=== PATIENT | female | born 1955 | race Caucasian/White ===

== ENCOUNTER 2017-08-19 12:53 | Outpatient (CLI) | payer BC ==
--- NOTE | 2017-08-19 15:30 | CT ---
ABDOMEN AND PELVIC CT SCAN WITHOUT IV CONTRAST: Date: 08/19/17 HISTORY: 61-year-old female with history of acute pyelonephritis, kidney infection, left flank pain, and micro hematuria. FINDINGS: There are some mostly linear parenchymal changes in the left lower lobe, evidence for subsegmental at electasis and/or chronic change. There is marked hepatomegaly with fatty change, with some fatty spar ing adjacent to the gallbladder, without ductal dilatation. Pancreas, spleen, and adrenal glands are unremarkable. Minimal enlargement of the left kidney with perirenal and periureteral fat stranding, w ith high grade obstruction secondary to a large ureteropelvic junction calculus measuring approximate ly 0.7 x 1.7 cm, as well as several other nonobstructing left renal calculi. No evidence for right re nal or obstruction. Normal appearing appendix. Uterus and adnexal regions are unremarkable. IMPRESSION: 1. Large, irregular left-sided calculus results in severe obstruction at ureteropelvic junction, wit h several smaller, nonobstructing left renal calculi. 2. Marked hepatomegaly with fatty change. 3. Linear stranding in the left lung base, consistent with some subsegmental atelectasis and/or electrician apprentice powerhouse laura change. POS: [facility]
== END 2017-08-19 12:54 | disposition home or self-care (01) ==
LOC: CT 12:53
PROVIDERS: ATTEND Family Medicine
DX: N10 Acute pyelonephritis (principal); N20.2 Calculus of kidney with calculus of ureter; R91.8 Other nonspecific abnormal finding of lung field
CPT/HCPCS: 74176

== ENCOUNTER 2017-08-20 13:58 | Day surgery (SDC) | payer BC ==
[2017-08-20 13:20] LABS: Bilirubin Small (Negative); Blood, Urine Moderate (Negative); Clarity CLOUDY (Clear); Glucose, Urine (Dipstick) Negative (Negative); Leukocyte Large (Negative); Nitrite Negative (Negative); Protein, Urine (Dipstick) 30 mg/dL (Neg-Trace); Specific Gravity, Urine 1.016 (1.002-1.036)
[2017-08-20 13:26] LABS: Bacteria/HPF None Seen HPF (None Seen); Hyaline Casts/LPF 0-3 HYALINE CAST LPF (0-3 Hyaline); Pathc Cast-AUWi Flag 0.14 (0-2.49); RBC/HPF 0-3 HPF (0-3)
[2017-08-20 13:29] LABS: Yeast-AUWi Flag 31.2 (0-25.0)
[~2017-08-20 13:58] MED LIST: Acetaminophen 500 MG TAB PO PRN; Lactated Ringer's 1,000 ML IV SCH; Lactated Ringer's 500 ML IV SCH; Lidocaine 1% PF 5 ML VIAL ONE; Metoclopramide HCl 10 MG/2 ML VIAL IVP PRN; Ondansetron HCl/PF 4 MG/2 ML Vial IVP PRN; PROPOFOL 200 MG/20 ML VIAL ONE; cefTRIAXone\\ROCEPHIN 1 GM in Sodium Chloride 0.9% 100 ML IVPB SCH; diphenhydrAMINE 50 MG in Sodium Chloride 0.9% 50 ML IVPB PRN
[2017-08-20 14:01] LABS: Renal Epithelial 0-3 HPF (0-3); Yeast-All Forms None Seen HPF (None Seen)
[2017-08-20 14:20] VITALS: BMI 25.8
[2017-08-20] MEDS ORDERED: Iothalamate Meglumine 60% 50 ML VIAL FS ONE (14:45)
[2017-08-20] MEDS ORDERED: diphenhydrAMINE 50 MG in Sodium Chloride 0.9% 50 ML IVPB PRN (14:48)
[2017-08-20] MEDS ORDERED: Ondansetron HCl/PF 4 MG/2 ML Vial IVP PRN ×2 (14:50→16:55)
[2017-08-20] MEDS ORDERED: Metoclopramide HCl 10 MG/2 ML VIAL IVP PRN (14:50)
[2017-08-20] MEDS ORDERED: Morphine 4 MG/ML VIAL SLOW IVP PRN (14:52)
[2017-08-20] MEDS ORDERED: Lactated Ringer's 500 ML IV SCH (15:00)
[2017-08-20] MEDS: Lactated Ringer's 1,000 ML IV SCH ×2 (15:11→20:39)
[2017-08-20] MEDS ORDERED: Midazolam HCl 2 mg/2 ml Vial ONE (16:22)
[2017-08-20] MEDS ORDERED: Fentanyl 100 MCG/2 ML VIAL ONE (16:22)
[2017-08-20] MEDS ORDERED: Morphine Sulfate 2 MG/ML SYRINGE SLOW IVP PRN (16:55)
[2017-08-20] MEDS ORDERED: HYDROmorphone 2 MG/ML VIAL SLOW IVP PRN (16:55)
[2017-08-20] MEDS ORDERED: Meperidine HCl/PF 25 MG/ML VIAL SLOW IVP PRN (16:55)
[2017-08-20] MEDS ORDERED: Tamsulosin HCl 0.4 MG CAP ONE (18:14)
[2017-08-20] MEDS: Tamsulosin HCl 0.4 MG CAP PO SCH (18:16)
[2017-08-20 18:34] LABS: Bilirubin Small (Negative); Blood, Urine Large (Negative); Glucose, Urine (Dipstick) Negative (Negative); Leukocyte Large (Negative); Nitrite Negative (Negative); Protein, Urine (Dipstick) 100 mg/dL (Neg-Trace); Urobilinogen 0.2 mg/dL (0.2-1.0); pH, Urine 6.5 (5.0-9.0)
[2017-08-20 18:36] LABS: Clarity Opaque (Clear)
[2017-08-20 18:43] LABS: Bacteria/HPF 1+ HPF (None Seen); RBC/HPF 21-50 HPF (0-3); Squamous Epithelial 0-3 HPF (0-3)
[2017-08-20 18:44] LABS: Hyaline Casts/LPF NONE SEEN LPF (0-3 Hyaline)
[2017-08-20] MEDS: Famotidine 40 MG/4 ML VIAL SLOW IVP SCH (20:38)
[2017-08-20] MEDS: Docusate 100 MG CAP PO SCH (20:38)
[2017-08-20] MEDS: Heparin 5,000 UNITS/ML VIAL SC SCH (20:38)
[2017-08-20] MEDS ORDERED: Famotidine/PF 20 mg/2ml Vial SLOW IVP SCH (21:00)
--- NOTE | 2017-08-21 00:35 | OP ---
DATE OF SERVICE: 08/20/2017 PREOPERATIVE DIAGNOSIS: Left obstructing ureteropelvic junction stone with rising creatinine and infected urine. POSTOPERATIVE DIAGNOSIS: Left obstructing ureteropelvic junction stone with rising creatinine and infected urine. PROCEDURE: Cystoscopy, left retrograde pyelogram, insertion of left ureteral stent, 6 x 26. SURGEON: Ana Bautista M.D. ANESTHESIA: General with laryngeal mask airway. FINDINGS: Adequate placement of the left stent. Urine from the renal pelvis cloudy. No complications No blood loss. DRAIN: [id number] stent INDICATIONS: The patient is a 61-year-old female who was seen in the office and noted to have prior fevers last week along with urinary tract infection on antibiotics with worsening nausea and left flank pain, noted to have a rising creatinine. She was admitted for urgent stent. PROCEDURE IN DETAIL: The patient was brought into the room by Anesthesia, lying on table in the supine position. After receiving general anesthetic, her legs placed in lithotomy position and her perineum was prepped and draped in sterile fashion. Using a 22-Maori cystoscope and 30-degree lens, it was traversed and bladder inspected. No lesions were noted. The left ureteral orifice was intubated with a Pollack catheter and a retrograde pyelogram performed revealing a filling defect at the UPJ. The Pollack catheter was advanced up to this level and initially was not able to pass it, but then with more manipulation past it before even having to use a wire. No significant hydronephrotic drip was noted, but retraction of approximately 15 mL of cloudy concentrated urine was obtained and sent for specimen. A 6 x 26 double-J stent was chosen. A good coil was visualized in the renal pelvis via fluoroscopy and a good coil visualized in the bladder via cystoscopy. After placement of double wire and then removing the wire. Scope was broken apart. Bladder drained and then removed in its entirety. The patient tolerated the procedure well and was then awakened and transferred back in stable condition. Note, I did her genital exam during the operation as it had been deferred in the office and it was noted that she had grade 1 cystocele with a small caruncle noted. [facility]
[2017-08-21] MEDS: Acetaminophen 500 MG TAB PO PRN ×3 (01:36→14:22)
[2017-08-21] MEDS: Lactated Ringer's 1,000 ML IV SCH ×2 (04:50→17:11)
[2017-08-21 05:15] LABS: ALT (SGPT) 157 U/L (8-55); AST (SGOT) 137 U/L (5-34); Albumin 2.7 g/dL (3.5-5.0); Alkaline Phosphatase 235 U/L (40-150); Anion Gap 12 mmol/L (10-20); BUN (Urea Nitrogen) 47 mg/dL (9.8-20.1); Bilirubin, Direct 1.1 mg/dL (0.1-0.3); Bilirubin, Total 1.4 mg/dL (0.2-1.2); Calc. Creatinine Clearance 40 mL/min (70-130); Carbon Dioxide 20 mmol/L (22-29); Chloride 102 mmol/L (98-107); Estimated GFR-MDRD 30; Glucose 88 mg/dL (70-105); Potassium 3.3 mmol/L (3.5-5.1); Protein, Total 5.4 g/dL (6.0-8.3); Sodium 131 mmol/L (136-145)
[2017-08-21 05:34] LABS: HBCM Index 0.05 S/CO (0-0.79); HBSAg Index 0.18 S/CO (0-0.99); Hep A IgM AB Non-Reactive (NonReactive); Hep A IgM S/CO 0.08 S/CO (0-0.79); Hep B Surf Ag Non-Reactive S/CO (NonReactive); Hep C IgG Ab Non-Reactive (NonReactive); Hepatitis B Core IGM Abs Non-Reactive (NonReactive)
[2017-08-21] MEDS ORDERED: Lactated Ringer's 500 ML IV SCH (07:00)
[2017-08-21] MEDS ORDERED: Potassium Chloride 20 MEQ TAB PO SCH (07:00)
[2017-08-21] MEDS: Docusate 100 MG CAP PO SCH (08:17)
[2017-08-21] MEDS: Heparin 5,000 UNITS/ML VIAL SC SCH ×2 (08:18→17:11)
[2017-08-21] MEDS: Tamsulosin HCl 0.4 MG CAP PO SCH (08:18)
[2017-08-21] MEDS: Famotidine 40 MG/4 ML VIAL SLOW IVP SCH (08:18)
--- NOTE | 2017-08-21 09:52 | ULT ---
RIGHT UPPER QUADRANT ULTRASOUND: DATE: 08/21/17. HISTORY: Increased liver function tests. FINDINGS: The liver demonstrates diffuse increased echogenicity likely related to diffuse fatty infiltration. There is a small hypoechoic structure seen adjacent to the gallbladder measuring 1.3 cm likely attrib utable to small focal area of fatty sparing. The liver is enlarged in craniocaudal dimensions measur ing 19.6 cm. There is increased echogenic material within the gallbladder lumen suggesting sludge. No gallbladder calculus is seen, and there is no gallbladder wall thickening or pericholecystic fluid. The common duct is normal in caliber measuring 0.3 cm. The visualized portions of the pancreas, visualized portions of the IVC, and right kidney demonstrate a normal sonographic appearance. The right kidney measures 13.6 cm in length. IMPRESSION: 1. Hepatomegaly with diffuse fatty infiltration of the liver. In addition, there is a probable foca l area of fatty sparing adjacent to the gallbladder. 2. Small amount of gallbladder sludge. No gallbladder calculus is seen, and the common duct is norm al in caliber. POS: [facility]
--- NOTE | 2017-08-21 10:58 | RAD ---
ABDOMEN ONE VIEW: HISTORY: A 61-year-old female for followup of left renal calculi. FINDINGS: There is a left ureteral stent in place. There is a large, irregular calculus noted in the region of the left renal pelvis and several irregular calculi noted in the lower pole. No bowel obstruction o r other acute process. IMPRESSION: 1. Multiple irregular-shaped left renal calculi, including a fairly large, irregular calculus in the region of the renal pelvis. 2. Left ureteral stent in place. POS: [facility]
[2017-08-21] MEDS ORDERED: cefTRIAXone\\ROCEPHIN 2 GM in Sodium Chloride 0.9% 100 ML IVPB SCH (15:00)
[2017-08-21 15:27] VITALS: BP 137/78
[2017-08-21 15:30] VITALS: TEMP 98.8
--- NOTE | 2017-08-21 17:14 | PRG ---
DATE OF SERVICE: 08/21/2017 The patient did well overnight and feels significantly better. She has no complaints with respect to pain. She does have some stent irritation. She has remained afebrile with vitals stable. She has had excellent urine output overnight. Her laboratory values reveal an improvement in her creatinine from 2.06 to 1.73. Her sodium is still low at 131. Her potassium now 3.3 from 3.2 and her urine from the OR did show 1+ bacteria. Her liver function test only worsened with an AST going from 111-137 and the ALT going from 127-157; however, hepatitis panel is negative. On assessment, we have a 61-year-old female, status post urgent stent for obstructing stone with infected urine, who is improving significantly from that standpoint; however, has elevated LFTs that I do not have an explanation for that if worsened. For this reason, we discussed getting GI to evaluate her to ensure there is nothing that needs to be addressed while in-house before she is discharged. I will ask the on-call GI doctor to evaluate for this. I will go ahead and order a right upper quadrant ultrasound in anticipation that this may be helpful for them. I will give her potassium replacement and keep her well hydrated, but anticipate that unless there is concern from the GI standpoint that she will still be able to go home today. [facility]
--- NOTE | 2017-08-22 00:14 | CON ---
DATE OF SERVICE: 08/21/2017 GI INTPATIENT CONSULTATION NOTE REQUESTING PHYSICIAN: Dr. Bautista. REASON FOR CONSULTATION: Elevated LFTs. HISTORY OF PRESENT ILLNESS: Savanna Bertrand is a very pleasant 61-year-old woman who has been seen in the past by my colleague, Dr. Marly Brandon for colonoscopy last in 2007. Ms. Bertrand has no prior h istory of liver or gallbladder illness or disease. She does not drink alcohol. She does not take a lot of herbal supplements. She was admitted to the hospital yesterday after having undergone left ur eteral stent placement. She has a large irregular left-sided calculus which was obstructing the left UPJ and had urinary tract infection. The procedure went well yesterday. On preoperative labs, 2 da ys ago, she was noted to have elevation of LFTs with total bilirubin 2.0, alkaline phosphatase 260, A ST 111, ALT 127. Prior LFTs from 2017 and 2016 were normal. This morning's labs demonstrate continu ed LFT elevation to about the same degree. Total bilirubin went down to 1.4, alkaline phosphatase 23 5, AST 137, ALT 157. The patient's INR is normal. Her platelets are normal. Viral hepatitis serolo gies were checked and are negative for A, B and C. The patient states she is feeling much better tod ay after stent placement yesterday. She is not having any abdominal pain. There is no nausea. She has been afebrile today and urinating well. She denies any real history of right upper quadrant or u pper abdominal pain to suggest biliary disease. She did have an abdominal ultrasound also today whic h demonstrated a small amount of gallbladder sludge, but no biliary dilation, normal appearing gallbl adder. She does have hepatomegaly and diffuse fatty liver infiltration and this was also demonstrate d on CT scan from a couple of days ago. PAST MEDICAL HISTORY: Hypertension, hypothyroidism, hyperlipidemia, mitral regurgitation, chronic si nus congestion repositioning of urethral surgery in 1993, colonoscopy in 2007. FAMILY HISTORY: Negative for liver disease. ALLERGIES: AMOXICILLIN. OUTPATIENT MEDICATIONS: Losartan, fenofibrate, levothyroxine, mometasone, calcium/vitamin D, Bactrim . SOCIAL HISTORY: No tobacco use. No recent alcohol use. Overall alcohol use is quite rare. No drug use. PHYSICAL EXAMINATION: VITAL SIGNS: Temperature 98.8, pulse 81, blood pressure 137/78, 94% oxygen saturation on room air. GENERAL: A 61-year-old woman lying in bed comfortably in no acute distress. HEART: Regular rate and rhythm. LUNGS: Clear to auscultation bilaterally. ABDOMEN: Bowel sounds present, soft, nontender to palpation throughout. No guarding, rebound tender ness. EXTREMITIES: No peripheral edema. SKIN: No jaundice, no rashes visible or palpable. EYES: No scleral icterus. Extraocular movements intact. ENT: Mucous membranes moist, no oral lesions. LYMPH: No submandibular, supraclavicular lymphadenopathy. THYROID: Nontender to palpation. NEUROLOGICAL: Cranial nerves II through XII intact bilaterally. VESSELS: Radial pulses 2+ bilaterally. No focal deficits. LABORATORY STUDIES: Total bilirubin 1.4, direct bilirubin 1.1, alkaline phosphatase 235, AST 137, AL T 157. Sodium 131, potassium 3.3, BUN 47, creatinine down to 1.73. TSH 3.87. Viral hepatitis serol ogy is negative. INR 1.2. WBC 14.7, hemoglobin 12.2, platelets 198. Urine culture from 6 days ago grew E. coli and Proteus mirabilis. Urine cultures collected yesterday show no growth at 24 hours. IMAGING STUDIES: Abdominal ultrasound from earlier today demonstrated some gallbladder sludge, but n o biliary dilation, no gallbladder wall thickening. She does have hepatomegaly with diffuse fatty in filtration of the liver and an area of focal fatty sparing adjacent to the gallbladder. ASSESSMENT AND PLAN: 1. Elevated liver function tests. 2. Fatty liver. I discussed multiple potential etiologies for elevated LFTs with the patient. I se e no clinical or laboratory evidence of liver synthetic dysfunction or anything concerning for liver fibrosis. This LFT elevation is new in the context of recent urinary tract infection and large left ureteral stone and a lot of antibiotics in recent weeks. This likely represents a reaction from one of the antibiotics or from low grade sepsis. If so, I would expect liver tests to resolve over the n ext few weeks. It is possible that her underlying fatty liver disease is also contributing. Note th e negative viral hepatitis serologies. Her symptoms and ultrasound are really not consistent with bi liary etiology. She does not drink alcohol. I do not think any aggressive liver workup is needed at this time. I would recommend that she follow up in the GI clinic in 2-[address] Brandon or one of our Physician assistants and LFTs be reche cked at that time. If LFTs remain elevated or have worsened, then some further laboratory workup cou ld be considered. Thank you for the consultation. GI will sign off, but please call back with any questions or concern s.
== END 2017-08-21 18:36 | disposition home or self-care (01) ==
LOC: CANPRESDC → SDC 13:58 → 2SW 14:01 → SDC 08-21 18:36
PROVIDERS: ATTEND Urology
PROC: 0T778DZ Dilation of Left Ureter with Intraluminal Device, Via Natural or Artificial Opening Endoscopic (ICD-10-PCS; principal; 2017-08-21)
DX: N20.1 Calculus of ureter (principal); I10 Essential (primary) hypertension; E03.9 Hypothyroidism, unspecified; E78.5 Hyperlipidemia, unspecified; I34.0 Nonrheumatic mitral (valve) insufficiency; K76.0 Fatty (change of) liver, not elsewhere classified; K21.9 Gastro-esophageal reflux disease without esophagitis; R09.81 Nasal congestion; Z79.51 Long term (current) use of inhaled steroids; Z79.899 Other long term (current) drug therapy; Z88.0 Allergy status to penicillin
CPT/HCPCS: 36415; 71046; 74018; 76705; 80048; 80074; 80076; 81001; 85025; 85610; 85730; 87086; 93005; 93010; A4216; C1758; J0696; J1200; J1644; J2001; J2250; J2704; J3010; J7050; Q9961

== ENCOUNTER 2017-09-08 12:07 | Outpatient (CLI) | payer BC ==
[2017-09-08 13:27] LABS: Hemoglobin 10.7 g/dL (12.0-16.0); Mean Corpuscular HGB CONC 33.6 g/dL (32.0-36.0); Mean Corpuscular Volume 92.3 fl (81.0-99.0); Mean Platelet Volume 7.6 fL (7.4-10.4); Platelet Count 405 thou/uL (130-400); RBC Distribution Width 12.8 % (11.5-14.5); Red Blood Cell (RBC) Count 3.45 mill/uL (4.20-5.40); White Blood Cell (WBC) Count 8.7 thou/uL (4.8-10.8)
[2017-09-08 13:57] LABS: ALT (SGPT) 10 U/L (8-55); AST (SGOT) 11 U/L (5-34); Alkaline Phosphatase 93 U/L (40-150); Anion Gap 11 mmol/L (10-20); BUN (Urea Nitrogen) 15 mg/dL (9.8-20.1); Bilirubin, Direct 0.2 mg/dL (0.1-0.3); Bilirubin, Total 0.3 mg/dL (0.2-1.2); Calc. Creatinine Clearance 0 mL/min (70-130); Calcium 9.7 mg/dL (7.8-10.44); Carbon Dioxide 27 mmol/L (23-31); Chloride 104 mmol/L (98-107); Estimated GFR-MDRD 69; Glucose 122 mg/dL (80-115); Protein, Total 7.2 g/dL (6.0-8.3); Sodium 138 mmol/L (136-145)
== END 2017-09-08 12:08 | disposition home or self-care (01) ==
LOC: LABBT 12:07
PROVIDERS: ATTEND Urology
DX: Z01.812 Encounter for preprocedural laboratory examination (principal); N20.2 Calculus of kidney with calculus of ureter
CPT/HCPCS: 80048; 80076; 85027

== ENCOUNTER 2017-09-16 13:30 | Day surgery (SDC) | payer BC ==
[2017-09-16] MEDS ORDERED: diphenhydrAMINE 50 MG/ML VIAL ONE (14:26)
[2017-09-16] MEDS ORDERED: Dexamethasone 20 MG/5 ML VIAL ONE (14:26)
[2017-09-16] MEDS ORDERED: PROPOFOL 200 MG/20 ML VIAL ONE (14:26)
[2017-09-16] MEDS ORDERED: Lidocaine 1% PF 5 ML VIAL ONE (14:26)
[2017-09-16] MEDS ORDERED: ePHEDrine/0.9% NaCl/PF SYRINGE 50 mg/10 ml ONE (14:26)
[2017-09-16] MEDS ORDERED: Ondansetron HCl/PF 4 MG/2 ML Vial ONE (14:26)
--- NOTE | 2017-09-16 14:28 | RAD ---
KUB: Indication: History of left renal stones. Comparison: 08-21-17 FINDINGS: Left ureteral stent is unchanged in position. Large left Staghorn calculus is stable. Calculus involv ing the inferior pole left kidney is stable. Bowel gas pattern is nonobstructed. No acute osseous abn ormality is evident. IMPRESSION: Stable. POS: [facility]
[2017-09-16] MEDS ORDERED: Fentanyl 100 MCG/2 ML VIAL ONE (16:41)
--- NOTE | 2017-09-17 05:28 | OP ---
DATE OF SERVICE: 09/16/2017 PREOPERATIVE DIAGNOSIS: Left renal stone. POSTOPERATIVE DIAGNOSIS: Left renal stone. PROCEDURE: Extracorporeal shock wave lithotripsy. SURGEON: Ana Bautista M.D. ANESTHESIA: General with laryngeal mask airway. FINDINGS: Adequate fragmentation of very large UPJ/renal pelvic stone as well as a fragment in the lower pole. COMPLICATIONS: None. DRAIN REMAINING: None. BLOOD LOSS: None. SPECIMENS: None. INDICATIONS: The patient is a 62-year-old female who was previously admitted urgently for stent for for 1.5 cm obstructing UPJ stone and she presents for definitive therapy. PROCEDURE IN DETAIL: The patient was brought into the room by Anesthesia, laid on the table in supine position. Biliary lithotripter identified the stone in multiple planes and total of 30,000 shocks were delivered. I initially delivered 2500 to the large stone and then took the balloon down and I reassessed it. Then, I spent 200 shocks on the 5 mm fragment in the lower pole and there was still a decent cloud noted at the original stone, so additional 300 shocks were delivered at a maximum power level of 5/6 at a maximum rate of 70 per minute. The patient tolerated procedure well and was then awakened and transferred to PACU in stable condition. [facility]
== END 2017-09-16 19:50 | disposition home or self-care (01) ==
LOC: SDC 13:30
PROVIDERS: ATTEND Urology
PROC: 0TF4XZZ Fragmentation in Left Kidney Pelvis, External Approach (ICD-10-PCS; principal; 2017-09-16)
PROC: 0TF7XZZ Fragmentation in Left Ureter, External Approach (ICD-10-PCS; principal; 2017-09-16)
DX: N20.2 Calculus of kidney with calculus of ureter (principal); N39.0 Urinary tract infection, site not specified; I10 Essential (primary) hypertension; E03.9 Hypothyroidism, unspecified; E78.5 Hyperlipidemia, unspecified; K21.9 Gastro-esophageal reflux disease without esophagitis; Z88.0 Allergy status to penicillin; Z79.2 Long term (current) use of antibiotics; Z79.899 Other long term (current) drug therapy
CPT/HCPCS: 74018; J1100; J1200; J2001; J2405; J2704; J3010

== ENCOUNTER 2017-10-20 08:35 | Outpatient (CLI) | payer BC | END 2017-10-20 08:36 | disposition home or self-care (01) | LOC: BICRAD 08:35 | PROVIDERS: ATTEND Urology | DX: N20.2 Calculus of kidney with calculus of ureter (principal) | CPT/HCPCS: 74018 ==

== ENCOUNTER 2017-11-13 17:45 | Emergency (ER) | payer BC ==
[2017-11-13] MEDS ORDERED: Acetaminophen 500 MG TAB ONE (19:23)
[2017-11-13 19:32] LABS: #Lymphocytes 0.9 thou/uL (1.20-3.40); #Monocytes 0.5 thou/uL (0.11-0.59); #Neutrophils 12.5 thou/uL (1.40-6.50); %Basophils 0.1 % (0.0-1.0); %Eosinophils 0.1 % (0.0-10.0); %Lymphocytes 6.3 % (21.0-51.0); %Monocytes 3.7 % (0.0-10.0); %Neutrophils 89.8 % (42.0-75.0); Hemoglobin 12.2 g/dL (12.0-16.0); Mean Corpuscular HGB CONC 33.7 g/dL (32.0-36.0); Mean Corpuscular Hemoglobin 31.2 pg (27.0-31.0); Mean Corpuscular Volume 92.5 fL (78.0-98.0); Mean Platelet Volume 7.5 fL (7.4-10.4); Platelet Count 300 thou/uL (130-400); RBC Distribution Width 13.1 % (11.5-14.5); Red Blood Cell (RBC) Count 3.93 mill/uL (4.20-5.40); White Blood Cell (WBC) Count 13.9 thou/uL (4.8-10.8)
--- NOTE | 2017-11-13 19:50 | RAD ---
PORTABLE UPRIGHT FRONTAL CHEST RADIOGRAPH 11/13/17 COMPARISON: None. HISTORY: Coughing, concern for aspiration, fever. FINDINGS: No pneumothorax, pleural fluid, lobar consolidation, or alveolar edema. Heart and mediastinal contours appear grossly unremarkable. Mild increased linear density noted in the left base which could represent mild infiltrate or volume loss. IMPRESSION: Mild increased linear density in the left lung base with no focal consolidation or evidence of edema. POS: [facility]
[2017-11-13 19:54] LABS: ALT (SGPT) 24 U/L (8-55); AST (SGOT) 24 U/L (5-34); Albumin 4.8 g/dL (3.4-4.8); Alkaline Phosphatase 49 U/L (40-150); Anion Gap 13 mmol/L (10-20); BUN (Urea Nitrogen) 14 mg/dL (9.8-20.1); Bilirubin, Total 0.3 mg/dL (0.2-1.2); Calc. Creatinine Clearance 0 mL/min (70-130); Calcium 9.8 mg/dL (7.8-10.44); Carbon Dioxide 24 mmol/L (23-31); Chloride 107 mmol/L (98-107); Estimated GFR-MDRD 61; Globulin 2.8 g/dL (2.4-3.5); Glucose 138 mg/dL (80-115); Potassium 3.6 mmol/L (3.5-5.1); Protein, Total 7.6 g/dL (6.0-8.3); Sodium 140 mmol/L (136-145)
[2017-11-13 19:58] LABS: CKMB 1.9 ng/mL (0-6.6); Troponin I Less than 0.010 ng/mL (< 0.028)
== END 2017-11-14 00:36 | disposition home or self-care (01) ==
LOC: ERS 17:45
DX: J18.9 Pneumonia, unspecified organism (principal); E03.9 Hypothyroidism, unspecified; I10 Essential (primary) hypertension; Z79.899 Other long term (current) drug therapy
CPT/HCPCS: 71046; 80053; 82553; 83605; 84484; 85025; 87040; 93005; 96360; 96361

== ENCOUNTER 2019-04-16 11:32 | Outpatient (CLI) | payer BC ==
--- NOTE | 2019-04-16 12:19 | MMO ---
Bilateral MAMMO Bilat Screen [facility]. CLINICAL HISTORY: Patient is 63 years old and is seen for screening. The patient has the following family history of breast cancer: mother, at age 72. The patient has no personal history of cancer. VIEWS: The views performed were: bilateral craniocaudal with tomosynthesis and bilateral mediolateral oblique with tomosynthesis. FILMS COMPARED: The present examination has been compared to prior imaging studies performed at [facility] on 12/31/2013, 01/26/2015, 02/15/2016 and 03/14/2017. This study has been interpreted with the assistance of computer-aided detection. MAMMOGRAM FINDINGS: There are scattered fibroglandular densities. There is an asymmetry seen in the CC view only seen in the outer region of the right breast. In the left breast, there are no suspicious masses, calcifications or areas of architectural distortion. IMPRESSION: ASYMMETRY IN THE RIGHT BREAST REQUIRES ADDITIONAL EVALUATION. RECOMMEND DIAGNOSTIC MAMMOGRAM. ULTRASOUND MAY ALSO PROVE USEFUL AT RECALL. THE RESULTS OF THIS EXAM WERE SENT TO THE PATIENT. ACR BI-RADS Category 0 - Incomplete: Need additional imaging evaluation. [facility] will notify the patient of the need for additional imaging services. MAMMOGRAPHY NOTE: 1. A negative mammogram report should not delay a biopsy if a dominant of clinically suspicious mass is present. 2. Approximately 10% to 15% of breast cancers are not detected by mammography. 3. Adenosis and dense breasts may obscure an underlying neoplasm. Reported by: GEM ADAMES MD Electonically Signed: [id number]
== END 2019-04-16 11:33 | disposition home or self-care (01) ==
LOC: BICMAMMO 11:32
PROVIDERS: ATTEND Family Medicine
DX: Z12.31 Encounter for screening mammogram for malignant neoplasm of breast (principal); N64.89 Other specified disorders of breast; Z80.3 Family history of malignant neoplasm of breast
CPT/HCPCS: 77063; 77067

== ENCOUNTER 2019-04-23 12:49 | Outpatient (CLI) | payer BC ==
--- NOTE | 2019-04-23 13:07 | MMO ---
Right Breast MAMMO Unilat Diag [facility]DI RT+[facility]E. CLINICAL HISTORY: Patient is 63 years old and is seen for diagnostic exam. The patient has the following family history of breast cancer: mother, at age 72. The patient has no personal history of cancer. VIEWS: The views performed were: right craniocaudal with tomosynthesis and right mediolateral with tomosynthesis. FILMS COMPARED: The present examination has been compared to prior imaging studies performed at [facility] on 01/26/2015, 02/15/2016, 03/14/2017 and 04/16/2019. This study has been interpreted with the assistance of computer-aided detection. MAMMOGRAM FINDINGS: There are scattered fibroglandular densities. Focal asymmetry does not persist. No new abnormalities. There are no suspicious masses, suspicious calcifications, or new areas of architectural distortion. IMPRESSION: THERE IS NO MAMMOGRAPHIC EVIDENCE OF MALIGNANCY. A ROUTINE FOLLOW-UP MAMMOGRAM IN 1 YEAR IS RECOMMENDED. THE RESULTS OF THIS EXAM WERE SENT TO THE PATIENT. ACR BI-RADS Category 2 - Benign finding MAMMOGRAPHY NOTE: 1. A negative mammogram report should not delay a biopsy if a dominant of clinically suspicious mass is present. 2. Approximately 10% to 15% of breast cancers are not detected by mammography. 3. Adenosis and dense breasts may obscure an underlying neoplasm. Reported by: MERLIN YAO MD Electonically Signed: [id number]
== END 2019-04-23 12:50 | disposition home or self-care (01) ==
LOC: BICMAMMO 12:49
PROVIDERS: ATTEND Family Medicine
DX: Z12.31 Encounter for screening mammogram for malignant neoplasm of breast (principal); Z80.3 Family history of malignant neoplasm of breast
CPT/HCPCS: G0279

== ENCOUNTER 2020-06-01 15:20 | Outpatient (CLI) | payer BC ==
--- NOTE | 2020-06-01 16:06 | MMO ---
Bilateral MAMMO Bilat Screen [facility]. CLINICAL HISTORY: Patient is 64 years old and is seen for screening. The patient has the following family history of breast cancer: mother, at age 72. The patient has no personal history of cancer. VIEWS: The views performed were: bilateral craniocaudal with tomosynthesis and bilateral mediolateral oblique with tomosynthesis. FILMS COMPARED: The present examination has been compared to prior imaging studies performed at [facility] on 02/15/2016, 03/14/2017, 04/16/2019 and 04/23/2019. This study has been interpreted with the assistance of computer-aided detection. MAMMOGRAM FINDINGS: There are scattered fibroglandular densities. There are no suspicious masses, suspicious calcifications, or new areas of architectural distortion. IMPRESSION: THERE IS NO MAMMOGRAPHIC EVIDENCE OF MALIGNANCY. A ROUTINE FOLLOW-UP MAMMOGRAM IN 1 YEAR IS RECOMMENDED. THE RESULTS OF THIS EXAM WERE SENT TO THE PATIENT. ACR BI-RADS Category 1 - Negative MAMMOGRAPHY NOTE: 1. A negative mammogram report should not delay a biopsy if a dominant of clinically suspicious mass is present. 2. Approximately 10% to 15% of breast cancers are not detected by mammography. 3. Adenosis and dense breasts may obscure an underlying neoplasm. Reported by: SARA TORRES MD Electonically Signed: [id number]
== END 2020-06-01 15:21 | disposition home or self-care (01) ==
LOC: BICMAMMO 15:20
PROVIDERS: ATTEND Family Medicine
DX: Z12.31 Encounter for screening mammogram for malignant neoplasm of breast (principal); Z80.3 Family history of malignant neoplasm of breast
CPT/HCPCS: 77063; 77067

== ENCOUNTER 2021-06-04 13:21 | Outpatient (CLI) | payer BC | END 2021-06-04 13:22 | disposition home or self-care (01) | LOC: BICMAMMO 13:21 | PROVIDERS: ATTEND Family Medicine | DX: Z12.31 Encounter for screening mammogram for malignant neoplasm of breast (principal); N64.89 Other specified disorders of breast; Z80.3 Family history of malignant neoplasm of breast | CPT/HCPCS: 77063; 77067 ==

== ENCOUNTER 2021-06-11 14:49 | Outpatient (CLI) | payer BC | END 2021-06-11 14:50 | disposition home or self-care (01) | LOC: BICMAMMO 14:49 | PROVIDERS: ATTEND Family Medicine | DX: R92.2 Inconclusive mammogram (principal) | CPT/HCPCS: G0279 ==

== ENCOUNTER 2022-07-19 11:45 | Outpatient (CLI) | payer BC | END 2022-07-19 11:46 | disposition home or self-care (01) | LOC: BICMAMMO 11:45 | PROVIDERS: ATTEND Family Medicine | DX: Z12.31 Encounter for screening mammogram for malignant neoplasm of breast (principal); Z80.3 Family history of malignant neoplasm of breast | CPT/HCPCS: 77063; 77067 ==

== ENCOUNTER 2023-07-24 13:30 | Outpatient (CLI) | payer BC | END 2023-07-24 13:31 | disposition home or self-care (01) | LOC: BICMAMMO 13:30 | PROVIDERS: ATTEND Family Medicine | DX: Z12.31 Encounter for screening mammogram for malignant neoplasm of breast (principal); Z80.3 Family history of malignant neoplasm of breast | CPT/HCPCS: 77063; 77067 ==